=== PATIENT | male | born 1965 | race Caucasian/White ===

== ENCOUNTER 2016-10-28 12:00 | Emergency (ER) | payer MEDICAID, OTHER ==
[~2016-10-28] VITALS: Wt 110.0 kg
[~2016-10-28 12:00] MED LIST: ENAL20TA PO; GLIP-95 PO; MTF1000T PO
--- NOTE | 2016-10-28 12:39 | ERD ---
ER Documentation Chief Complaint Date/Time DATE: 10/28/16 TIME: 12:36 Chief Complaint RIGHT KNEE PAIN/INJURY S/P GLF HPI Patient is a 51-year-old male past medical history of hypertension, diabetes who presents with right knee pain status post ground-level fall yesterday. Patient says he was walking his dog when he tripped on the concrete and fell onto his right knee. Patient denies any nausea, dizziness, feelings of faint or syncope prior to fall. Patient states the pain is localized to his right knee. Patient is wearing a brace for comfort measures. Patient denies any previous injuries affected extremity. Patient states the pain is worse when moving his knee. Patient denies taking any medication for his pain. Patient denies any headache, nausea, vomiting, chest pain, shortness of breath or loss of consciousness. ROS All systems reviewed and are negative except as per history of present illness. Medications Home Meds Active Scripts Naproxen* (Naprosyn*) 500 Mg Tablet, 500 MG PO BID Y for PAIN AND/OR INFLAMMATION, #30 TAB Prov:HARPREET ARELLANO PA-C 10/28/16 Reported Medications Metformin* (Glucophage*) 1,000 Mg Tablet, 1000 MG PO BID, TAB 12/19/13 Glipizide* (Glipizide*) 10 Mg Tablet, 10 MG PO DAILY, TAB 12/19/13 Enalapril Maleate* (Enalapril Maleate*) 20 Mg Tablet, 20 MG PO DAILY, TAB 12/19/13 Allergies Allergies: Coded Allergies: No Known Allergy (Unverified , 12/19/13) PMhx/Soc History of Surgery: Yes (FISULECTOMY) Anesthesia Reaction: Yes Hx Neurological Disorder: No Hx Respiratory Disorders: No Hx Cardiac Disorders: Yes (HTN, HIGH CHOLESTEROL) Hx Psychiatric Problems: No Hx Miscellaneous Medical Probl: No Hx Substance Use: No FmHx Family History: No diabetes Physical Exam Vitals Vital Signs Date Time Temp Pulse Resp B/P Pulse Ox O2 Delivery O2 Flow Rate FiO2 10/28/16 12:02 98.0 106 18 142/99 96 Physical Exam GENERAL: Well-developed, well-nourished male. Appears in no acute distress. Speaking in full sentences HEAD: Normocephalic, atraumatic. EYES: Pupils are equally reactive bilaterally. EOMs grossly intact. No conjunctival erythema. ENT: Moist mucous membranes. No uvula deviation. No kissing tonsils. NECK: Supple. No meningismus. Normal range of motion of the neck. LUNG: Clear to auscultation bilaterally. No rhonchi, wheezing, rales or coarse breath sounds. HEART: Regular rate and rhythm. No murmurs, rubs or gallops. BACK: No midline tenderness. EXTREMITIES: Equal pulses bilaterally. No peripheral clubbing, cyanosis or edema. No unilateral leg swelling. NEUROLOGIC: Alert and oriented. Moving all four extremities without any difficulty. Normal speech. Steady gait. SKIN: Normal color. Warm and dry. No rashes or lesions. RIGHT KNEE: No obvious deformity. Slight swelling and ecchymosis noted to the anterior knee. Decreased range of motion of the knee secondary to pain and swelling. Skin intact. Tender to palpation of the anterior knee. Normal range of motion of the ankle and foot. Nontender to palpation of the femur, distal tib-fib, ankle or foot. No valgus/varus instability. Sensation intact to light touch. Neurovascularly intact. (Able to plantarflex, dorsiflex, chikis foot, invert foot, raise big toe.) 2+ DP and DT pulses. Results 24 hrs Current Medications Medications (Trade) Dose Ordered Sig/Raina Route PRN Reason Start Time Stop Time Status Last Admin Dose Admin Ibuprofen (Motrin) 600 mg ONCE ONCE PO 10/28/16 13:00 10/28/16 13:01 DC 10/28/16 12:47 Procedures/MDM ED COURSE: The patient was stable throughout ED course. I kept the patient and/or family informed of laboratory and diagnostic imaging results throughout the ED course. DIAGNOSTIC IMAGING: Read by radiologist. DIAGNOSTIC IMAGING REPORT Patient: ALEXANDRIA HARDY : 1965 Age: 51 Sex: M MR #: [id number] DOS: 10/28/16 1233 Ordering MD: HARPREET ARELLANO PA-C Location: [facility] Room/Bed: PROCEDURE: XR right knee. CLINICAL INDICATION: Knee pain TECHNIQUE: 3 views are available for review. COMPARISON: None available FINDINGS: There is mild osteoarthrosis involving the medial tibial femoral compartment ( narrowing and osteophytosis) and the patellofemoral compartment (osteophytosis). There is otherwise normal mineralization, architecture and alignment. No fractures are identified. No osseous lesions are identified. The soft tissues are unremarkable. IMPRESSION: Mild osteoarthrosis involving the medial tibial femoral compartment (narrowing and osteophytosis) and the patellofemoral compartment (osteophytosis) RPTAT: HGDB .Javier Zhou MD, MD Date Time Electronically viewed and signed by .Javier Zhou MD, MD on 10/28/2016 13:42 .B/ CC: HARPREET ARELLANO PA-C MEDICATIONS GIVEN: Ibuprofen 600 mg Patient tolerated medication well with no adverse reactions. Patient reported improvement in pain. MEDICAL DECISION MAKING: This is a 51-year-old male with history of diabetes and hypertension presents with right knee pain status post ground-level fall yesterday while walking his dog.. Vital signs were reviewed. Patient was afebrile. Xrays showed Mild osteoarthrosis involving the medial tibial femoral compartment (narrowing and osteophytosis) and the patellofemoral compartment ( osteophytosis). Given these findings, the patient;s presentation is most consistent with osteoarthrosis of the knee. I have a much lower clinical concern for femur fracture, patella fracture, tibial plateau fracture, septic joint, gout, popliteal cyst, prepatellar bursitis, patellofemoral syndrome, patellar tendinitis, osteomyelitis, DVT or compartment syndrome. At this time, unable to rule out any meniscus and knee ligament injuries. PRESCRIPTIONS: Naproxen DISCHARGE: At this time, patient is stable for discharge and outpatient management. Patient given a copy of all imaging studies obtained today. RICE therapy advised. Patient advised to continue wearing knee brace for comfort measures. I have instructed the patient to follow-up with his/her primary care physician in 1-2 days. I have discussed with the patient the possibility of needing to see an corporate specialist for further workup and imaging if the pain persists. I have instructed the patient to promptly return to the ER for any new or worsening symptoms including increased pain, swelling, redness, warmth or fever. The patient and/or family expressed understanding of and agreement with this plan. All questions were answered. Home care instructions were provided. Departure Diagnosis: Primary Impression: Knee pain Laterality: right Chronicity: acute Qualified Code: M25.561 - Acute pain of right knee Condition: Stable Patient Instructions: Knee Pain, Uncertain Cause Referrals: TORRI OLIVAREZ (PCP) Additional Instructions: Call your primary care doctor TOMORROW for an appointment during the next 1-2 days.See the doctor sooner or return here if your condition worsens before your appointment time. HARPREET ARELLANO PA-C October 28, 2016 12:39
[2016-10-28] MEDS ORDERED: IBUPROFEN 600 MG TAB PO ONE (13:00)
--- NOTE | 2016-10-28 13:42 | RADRPT ---
PROCEDURE: XR right knee. CLINICAL INDICATION: Knee pain TECHNIQUE: 3 views are available for review. COMPARISON: None available FINDINGS: There is mild osteoarthrosis involving the medial tibial femoral compartment (narrowing and osteophy tosis) and the patellofemoral compartment (osteophytosis). There is otherwise normal mineralization, architecture and alignment. No fractures are identified. No osseous lesions are identified. The soft tissues are unremarkable. IMPRESSION: Mild osteoarthrosis involving the medial tibial femoral compartment (narrowing and osteophytosis) an d the patellofemoral compartment (osteophytosis) RPTAT: HGDB .Javier Zhou MD, MD Date Time Electronically viewed and signed by .Javier Zhou MD, on 10/28/2016 13:42 .B/
[2016-10-28] MEDS ORDERED: NAPR-260 PO (13:56)
[2016-10-28 14:26] VITALS: BP 140/97; PULSE 69; RESP 18; TEMP 98.3
== END 2016-10-28 14:25 | disposition home or self-care (01) ==
LOC: FTE 12:00
DX: S89.91XA Unspecified injury of right lower leg, initial encounter (principal); I10 Essential (primary) hypertension; E11.9 Type 2 diabetes mellitus without complications; W01.0XXA Fall on same level from slipping, tripping and stumbling without subsequent striking against object, initial encounter; Y92.9 Unspecified place or not applicable; Z79.84 Long term (current) use of oral hypoglycemic drugs
CPT/HCPCS: 73562; Z7502; Z7610